=== PATIENT | female | born 1965 | race Caucasian/White ===

== ENCOUNTER 2016-11-15 07:39 | Emergency (ER) | payer OTHER ==
[~2016-11-15] VITALS: Ht 154.9 cm; Wt 63.5 kg
[~2016-11-15 07:39] MED LIST: EPIPEN 2-P0.3 MG/0.3 IM; HYDROXYZINE HCL50 M1 PO; PREDNISONE10 M2 PO
--- NOTE | 2016-11-15 07:56 | ED NECK/BACK PAIN COMPLAINT ---
History of Present Illness General Chief Complaint: Low Back Pain/Injury Stated Complaint: BACK PAIN Source: patient, family, old records Exam Limitations: no limitations Vital Signs & Intake/Output Vital Signs & Intake/Output Vital Signs Date Time Temp Pulse Resp B/P B/P Pulse O2 O2 Flow FiO2 Mean Ox Delivery Rate 11/15 0855 72 18 130/88 100 Room Air 11/15 0743 98.0 80 20 126/92 96 Room Air Allergies Coded Allergies: venom-honey bee (UNKNOWN 11/15/16) Reconcile Medications Cyclobenzaprine HCl 10 MG TABLET 1 TAB PO Q8P PAIN OR SPASM Epinephrine (Epipen 2-Tello) 0.3 MG/0.3 ML AUTO.INJCT 1 PEN IM ONCE PRN ALLERGIC REACTION Ibuprofen 600 MG TABLET 1 TAB PO TID PRN PAIN with food Oxycodone HCl/Acetaminophen (Percocet 5-325 MG Tablet) 5 MG-325 MG TABLET 1-2 TAB PO Q6P PRN PAIN Simvastatin (Simvastatin*) 40 MG TABLET 1 TAB PO QPM cholesterol (Reported) Telmisartan (Micardis) 40 MG TABLET 1 TAB PO DAILY BP (Reported) Triage Note: PT TO ED WITH MOTHER FOR C/O LOW BACK PAIN. PT STATES HAS H/O BACK PROBLEMS AND LAST NIGHT SHE WAS UNABLE TO WALK. PT NEEDED ASSISTANCE FROM STAFF OUT OF A CAR. PT HAS NOT TAKEN ANY MEDS. TAKEN TO ROOM 9 VIA W/C FOR PROVIDER MADHAV. Triage Nurses Notes Reviewed? yes HPI: Patient states that she suffers from chronic low back pain. Patient states that she sees pain management doctor who gives her injections which helps. Patient has been in the hospital with her son-in-law over the past week. Patient states that she is spent multiple hours sitting in a recliner chair. Patient states that every time she sits for prolonged period of time her back pain worsens. This morning the pain was so bad that she couldn't even get out of bed. The pain is in her right lower back and radiates down her right leg. The pain in her back is a throbbing aching pain but the pain radiated down her leg is a burning pain. Pain increases with movement. There is no incontinence of bowel or bladder. There are no fevers or chills. Past History Travel History Traveled to [place] past 21 day No Medical History Any Pertinent Medical History? see below for history Neurological: NONE EENT: NONE Cardiovascular: hypertension, hyperlipidemia Respiratory: NONE Gastrointestinal: NONE Hepatic: NONE Renal: NONE Musculoskeletal: NONE Psychiatric: NONE Endocrine: NONE Blood Disorders: NONE Cancer(s): NONE Surgical History Surgical History: non-contributory Psychosocial History What is your primary language Sudanese Tobacco Use: Quit >30 days ago ETOH Use: denies use Illicit Drug Use: denies illicit drug use Family History Hx Contributory? No Review of Systems Review of Systems Constitutional: Reports: no symptoms. Ears, Nose, Throat, Mouth: Reports: no symptoms. Respiratory: Reports: no symptoms. Cardiovascular: Reports: no symptoms. Musculoskeletal: Reports: see HPI, back pain. Neurological/Psychological: Reports: no symptoms. Physical Exam Physical Exam General Appearance: well developed/nourished, alert, awake, anxious, moderate distress Head: atraumatic, normal appearance Eyes: Bilateral: PERRL, EOMI. Neck: normal inspection, supple, full range of motion, no midline tenderness Respiratory: normal breath sounds, chest non-tender, no respiratory distress, lungs clear Cardiovascular: regular rate/rhythm, normal peripheral pulses Gastrointestinal: normal bowel sounds, soft, non-tender, no organomegaly Back: decreased range of motion, muscle spasm, no vertebral tenderness Extremities: non-tender, normal range of motion Straight Leg Raising: Right: Negative, Pain at ____ degrees (30). Left: Negative. Neurologic/Psych: no motor/sensory deficits, awake, alert, oriented x 3, normal mood/affect Skin: intact, normal color, warm/dry Progress Differential Diagnosis: herniated disc, myofascial strain, T/L spine injury Plan of Care: Current Medications Sig/Huang Start time Last Medication Dose Stop Time Status Admin Cyclobenzaprine HCl 10 MG ONCE ONE 11/16 799 UNVr (Flexeril 10MG Tab) 11/15 800 Ketorolac 60 MG ONCE ONE 11/16 799 UNVr Tromethamine 11/15 800 (Toradol) Prednisone 60 MG ONCE ONE 11/16 799 UNVr 11/15 800 Comments: Pain is decreased down to a 6 out of 10. Patient at this point wants to go home. Departure Departure Disposition: HOME OR SELF CARE Condition: Stable Clinical Impression Primary Impression: Muscle strain Referrals: YASEMIN SORIANO MD (PCP/Family) Additional Instructions: USE WARM HEAT TAKE MEDS NEEDED Departure Forms: Customer Survey General Discharge Information Prescriptions: Current Visit Scripts Cyclobenzaprine HCl 1 TAB PO Q8P #20 TAB Ibuprofen 1 TAB PO TID PRN PAIN #20 TAB with food Oxycodone HCl/Acetaminophen (Percocet 5-325 MG Tablet) 1-2 TAB PO Q6P PRN PAIN #20 TAB
[2016-11-15] MEDS ORDERED: SIMVASTATIN40 M1 PO (08:46)
[2016-11-15] MEDS ORDERED: MICARDIS40 M1 PO (08:46)
[2016-11-15] MEDS ORDERED: PERCOCET 5-3251 EACH PO (08:48)
[2016-11-15] MEDS ORDERED: CYCLOBENZAPRINE10 M1 PO (08:48)
[2016-11-15] MEDS ORDERED: IBUPROFEN600 M1 PO (08:48)
[2016-11-15 08:55] VITALS: BP 130/88
== END 2016-11-15 08:56 ==
LOC: ERH 07:39
DX: S39.012A Strain of muscle, fascia and tendon of lower back, initial encounter (principal); Y92.9 Unspecified place or not applicable; Y93.9 Activity, unspecified
CPT/HCPCS: 96372; J1885